=== PATIENT | male | born 1960 | race African-American/Black ===

== ENCOUNTER → 2024-06-25 | Outpatient (REF) | payer SELFPAY | LOC: M LAB REF 13:55 | PROVIDERS: ATTEND Family Medicine Addiction Medicine | DX: Z28.39 Other underimmunization status (principal) ==

== ENCOUNTER 2025-07-23 09:04 | Emergency (ER) | payer MEDICAID, OTHER ==
[~2025-07-23] VITALS: Ht 180.3 cm; Wt 115.5 kg
[2025-07-23] MEDS ORDERED: OFLOSO AS (10:26)
[2025-07-23] MEDS ORDERED: CEPH500C PO (10:27)
[2025-07-23] MEDS ORDERED: NYST1CRE15 TOP (10:27)
[2025-07-23] MEDS ORDERED: HYDR-3363 PO (10:27)
[2025-07-23 10:33] VITALS: BP 140/80; TEMP 97.7; O2SAT 100
== END 2025-07-23 10:34 | disposition home or self-care (01) ==
LOC: M ED 09:04
DX: L30.9 Dermatitis, unspecified (principal); H60.8X2 Other otitis externa, left ear; F17.210 Nicotine dependence, cigarettes, uncomplicated; Z88.5 Allergy status to narcotic agent; Z79.2 Long term (current) use of antibiotics; Z79.899 Other long term (current) drug therapy

== ENCOUNTER 2025-08-02 11:36 | Emergency (ER) | payer OTHER ==
[~2025-08-02] VITALS: Ht 180.3 cm; Wt 116.7 kg
[~2025-08-02 11:36] MED LIST: CEPH500C PO; HYDR-3363 PO; NYST1CRE15 TOP; OFLOSO AS
[2025-08-02 11:47] VITALS: BP 141/86; TEMP 97.2; O2SAT 100
== END 2025-08-02 13:39 | disposition left against medical advice (07) ==
LOC: M ED 11:36
DX: Z53.21 Procedure and treatment not carried out due to patient leaving prior to being seen by health care provider (principal)